=== PATIENT | male | born 1935 | race Caucasian/White ===

== ENCOUNTER → 2021-05-10 14:47 | Outpatient (CLI) | payer MEDICARE, SELFPAY | PROVIDERS: PCP Physician Assistant; Visit Provider Physician Assistant | DX: R39.9 Unspecified symptoms and signs involving the genitourinary system (principal) | CPT/HCPCS: 87077; 87086 ==

== ENCOUNTER → 2021-05-19 11:41 | Outpatient (CLI) | payer MEDICARE, SELFPAY | PROVIDERS: PCP Physician Assistant; Visit Provider Physician Assistant Medical | DX: B37.41 Candidal cystitis and urethritis (principal) | CPT/HCPCS: 87086 ==

== ENCOUNTER → 2021-06-06 12:05 | Outpatient (CLI) | payer MEDICARE, SELFPAY | PROVIDERS: PCP Physician Assistant; Visit Provider Physician Assistant | DX: N30.00 Acute cystitis without hematuria (principal) | CPT/HCPCS: 87086 ==

== ENCOUNTER → 2021-06-26 13:43 | Outpatient (CLI) | payer MEDICARE, SELFPAY | PROVIDERS: PCP Physician Assistant; Visit Provider Family Medicine | DX: R30.0 Dysuria (principal) | CPT/HCPCS: 87086 ==

== ENCOUNTER → 2021-07-19 16:32 | Outpatient (CLI) | payer MEDICARE, SELFPAY | PROVIDERS: PCP Physician Assistant; Visit Provider Physician Assistant Medical | DX: B37.41 Candidal cystitis and urethritis (principal) | CPT/HCPCS: 87086 ==

== ENCOUNTER → 2021-08-11 15:21 | Outpatient (CLI) | payer MEDICARE, SELFPAY | PROVIDERS: PCP Physician Assistant; Visit Provider Physician Assistant Medical | DX: Z91.89 Other specified personal risk factors, not elsewhere classified (principal) | CPT/HCPCS: 87077; 87086 ==

== ENCOUNTER → 2022-04-05 13:33 | Outpatient (CLI) | payer MEDICARE, SELFPAY ==
[2022-04-06 19:40] LABS: Bilirubin Urine UA NEGATIVE (NEGATIVE); Color Urine UA YELLOW; Glucose Urine UA NEGATIVE (Negative); Ketones Urine UA NEGATIVE (NEGATIVE); Leukocyte Esterase Urine UA 2+ (NEGATIVE); Nitrite Urine UA NEGATIVE (Negative); Occult Blood Urine UA 3+ (Negative); Protein Urine UA 2+ (Negative); Specific Gravity Urine UA 1.025 (1.000-1.035); Urobilinogen Urine UA 0.2 E.U./dL (0.2)
[2022-04-06 20:23] LABS: Appearance Urine UA Turbid
[2022-04-06 20:37] LABS: Bacteria Urine None Seen; Culture Indicated Urine Specimen Cultured; RBC Urine 10-30/HPF (0-5/HPF); WBC Urine >100/HPF (0-5/HPF)
== END ==
PROVIDERS: PCP Physician Assistant Medical
DX: B37.41 Candidal cystitis and urethritis (principal); R39.15 Urgency of urination
CPT/HCPCS: 81001; 87077; 87086

== ENCOUNTER → 2023-07-25 14:50 | Outpatient (CLI) | payer MEDICARE, SELFPAY | PROVIDERS: PCP Physician Assistant Medical; Visit Provider Physician Assistant Medical | DX: N39.0 Urinary tract infection, site not specified (principal) | CPT/HCPCS: 87086 ==

== ENCOUNTER → 2023-07-31 09:47 | Outpatient (CLI) | payer MEDICARE, SELFPAY | PROVIDERS: PCP Physician Assistant Medical; Visit Provider Physician Assistant Medical | DX: N39.0 Urinary tract infection, site not specified (principal); B37.41 Candidal cystitis and urethritis | CPT/HCPCS: 87086 ==

== ENCOUNTER → 2023-12-19 16:38 | Outpatient (CLI) | payer MEDICARE, SELFPAY | PROVIDERS: PCP Physician Assistant Medical; Visit Provider Physician Assistant Medical | DX: N39.0 Urinary tract infection, site not specified (principal) | CPT/HCPCS: 87086 ==

== ENCOUNTER → 2024-06-29 09:53 | Outpatient (CLI) | payer MEDICARE, SELFPAY | PROVIDERS: PCP Physician Assistant Medical; Visit Provider Family Medicine | DX: R33.9 Retention of urine, unspecified (principal); N39.0 Urinary tract infection, site not specified; B37.41 Candidal cystitis and urethritis | CPT/HCPCS: 87086 ==

== ENCOUNTER → 2025-07-29 08:15 | Outpatient (CLI) | payer SELFPAY | PROVIDERS: Visit Provider Urology | DX: N39.0 Urinary tract infection, site not specified (principal); R33.9 Retention of urine, unspecified | CPT/HCPCS: 87077; 87086 ==

== ENCOUNTER → 2025-08-25 12:29 | Outpatient (CLI) | payer SELFPAY | PROVIDERS: PCP Physician Assistant Medical; Visit Provider Physician Assistant Medical | DX: B37.41 Candidal cystitis and urethritis (principal); R33.9 Retention of urine, unspecified | CPT/HCPCS: 87086 ==

== ENCOUNTER → 2025-08-31 14:54 | Outpatient (CLI) | payer MEDICARE, SELFPAY ==
--- NOTE | 2025-08-31 14:57 | DI.ECHO.S_ITS ---
[facility] : : [address] : : [place] : : [id number] : : Phone: [phone] Echocardiogram Report + + :Name: MORGAN KEBEDE Study Date: 08/31/2025 Height: 67 in : :[facility] ReadingLocation: Weight: 130 lb : : Gender: Male BSA: 1.7 m2 : :: 1935 Age: 89 yrs BP: 135/76 mmHg: :Reason For Study: Cardiac clearance urlologic procedure : :Ordering Physician: CLEMENT, : :HERIBERTO Performed By: Jackson Umana : :Referring: HERIBERTO VAUGHAN : + + Interpretation Summary The ejection fraction is estimated to be 35-40%. There is hypokinesis of the inferior, inferoseptal and mid to distal inferolateral mas. There is dyskinesis of the basal inferolateral wall. Grade I diastolic dysfunction with normal left atrial pressure. The right ventricle is normal in size and function. There is mild aortic regurgitation. The ascending aorta is mildly enlarged. Pulmonary artery pressures cannot be estimated because of the lack of a measurable TR jet velocity. Procedure: A two-dimensional transthoracic echocardiogram with color flow and Doppler was performed. The study quality was technically adequate. There is no prior echocardiogram noted for this patient. The patient was in normal sinus rhythm during the exam. The heart rate ranged between 55-60 bpm during the study. Left Ventricle: The left ventricle is normal in size and wall thickness. Left ventricular systolic function is moderately reduced. The ejection fraction is estimated to be 35-40%. There is hypokinesis of the inferior, inferoseptal and mid to distal inferolateral mas. There is dyskinesis of the basal inferolateral wall. Grade I diastolic dysfunction with normal left atrial pressure. Right Ventricle: The right ventricle is normal in size and function. Atria: The left atrial size is normal. Right atrial size is normal. There is no Doppler evidence for an interatrial shunt. Mitral Valve: There is mild mitral annular calcification. The mitral valve leaflets appear mildly thickened. There is no mitral valve stenosis. There is trace mitral regurgitation. Aortic Valve: The aortic valve is trileaflet. The aortic valve opens well. There is no aortic valve stenosis. There is mild aortic regurgitation. Tricuspid Valve: The tricuspid valve is not well visualized, but is grossly normal. There is trace tricuspid regurgitation. Pulmonary artery pressures cannot be estimated because of the lack of a measurable TR jet velocity. Pulmonic Valve: The pulmonic valve is not well seen, but is grossly normal. There is trace pulmonic regurgitation. Great Vessels: The aortic root is mildly dilated. The ascending aorta is mildly enlarged. The pulmonary artery is normal size. The inferior vena cava was not visualized. Pericardium/ Pleura There is no pericardial effusion. MMode/2D Measurements & Calculations LVIDd: 5.2 cm LVOT diam: 2.0 cm LVIDs: 4.7 cm Ao root diam: 4.2 cm FS: 9.0 % asc Aorta Diam: 4.0 cm EPSS: 1.2 cm IVSd: 0.81 cm LVPWd: 0.79 cm LV cobb. diameter/BSA (cm/m^2): 3.1 LV sys. diameter/BSA (cm/m^2): 2.8 LA A2 area: 16.4 cm2 RVD1 (basal): 2.6 cm LA A4 area: 20.4 cm2 RVD2 (mid): 2.3 cm LA length (vol): 5.5 cm TAPSE: 1.6 cm LA vol: 51.5 ml LA vol index: 30.6 ml/m2 Doppler Measurements & Calculations Ao V2 max: 96.5 cm/sec LVOT Max Jeremy: 86.1 cm/sec Ao V2 mean: 62.9 cm/sec LV V1 max P.0 mmHg Ao max P.7 mmHg LV V1 VTI: 18.9 cm Ao mean P.9 mmHg FROYLAN(I,D): 3.0 cm2 Ao V2 VTI: 20.7 cm FROYLAN(V,D): 2.9 cm2 sev ratio: 0.92 FROYLAN indexed to BSA (cm^2/m^2): 1.8 AI P1/2t: 657.2 msec AI dec slope: 171.3 cm/sec2 MV E max jeremy: 53.9 cm/sec TR max jeremy: 183.1 cm/sec MV A max jeremy: 102.5 cm/sec TR max P.4 mmHg MV E/A: 0.53 PA V2 max: 85.9 cm/sec Med Peak E' Jeremy: 4.2 cm/sec PA V2 mean: 61.2 cm/sec E/E' med: 12.9 PA mean P.7 mmHg Lat Peak E' Jeremy: 6.3 cm/sec PA pr(Accel): 27.6 mmHg E/E' lat: 8.5 E/e' average: 10.7 MV dec time: 0.21 sec MVA(VTI): 2.1 cm2 MV V2 mean: 52.3 cm/sec SV(LVOT): 62.3 ml MV mean P.3 mmHg MV V2 VTI: 30.2 cm Qp/Qs (V,Ao): 1.0/5.0 Qp/Qs (V,LVOT): 1.0/1.1 Reading Physician:04:08 PM
== END ==
PROVIDERS: PCP Physician Assistant Medical; Referring Provider Physician Assistant Medical; Visit Provider Physician Assistant Medical
DX: Z01.818 Encounter for other preprocedural examination (principal); I34.81 Nonrheumatic mitral (valve) annulus calcification; I35.1 Nonrheumatic aortic (valve) insufficiency; I77.810 Thoracic aortic ectasia; I25.10 Atherosclerotic heart disease of native coronary artery without angina pectoris; I77.89 Other specified disorders of arteries and arterioles
CPT/HCPCS: 93307

== ENCOUNTER → 2025-09-08 14:39 | Outpatient (CLI) | payer MEDICARE, SELFPAY ==
[2025-09-08 16:06] LABS: Add Manual Diff / Slide Review NO; Hematocrit 39.1 % (41-53); Hemoglobin 13.1 g/dL (13.5-17.5); Lymphocytes Absolute Auto 1900 /uL (1100-4500); Mean Corpuscular HGB Conc 33.5 % (30-36); Mean Corpuscular Hemoglobin 29.1 PG (26-34); Mean Corpuscular Volume 86.9 fL (80-100); Platelet Count 251 X10^3/uL (150-400)
[2025-09-08 16:19] LABS: Hemoglobin A1C% w Est Avg Glu 5.4 % (4.0-6.0)
[2025-09-08 17:22] LABS: Alanine Aminotransferase 11 IU/L (<50); Albumin 4.1 g/dL (3.5-5.0); Albumin Globulin Ratio 1.2 (1.0-2.8); Alkaline Phosphatase 92 U/L (38-126); Blood Urea Nitrogen 17 mg/dL (9-20); Calcium 9.3 mg/dL (8.4-10.2); Carbon Dioxide 25 mmol/L (22-32); Chloride 109 mmol/L (98-107); Cholesterol 225 mg/dL (140-199); Estimated Glomerular Filt Rate > 60 mL/min (>60); Globulin 3.4 g/dL (1.7-4.1); Glucose 110 mg/dL (70-99); HDL Cholesterol 58 mg/dL (40-60); HEMOLYSIS < 15 (0-50); Potassium 4.2 mmol/L (3.4-5.1); Sodium 142 mmol/L (137-145); Total Protein 7.5 g/dL (6.3-8.2); Triglycerides 87 mg/dL (35-150)
[2025-09-08 17:54] LABS: TSH w/ Reflex to FT4 1.63 uIU/mL (0.47-4.68)
== END ==
PROVIDERS: PCP Physician Assistant Medical; Referring Provider Physician Assistant Medical; Visit Provider Physician Assistant Medical
DX: Z01.818 Encounter for other preprocedural examination (principal); I25.10 Atherosclerotic heart disease of native coronary artery without angina pectoris; I10 Essential (primary) hypertension; M54.2 Cervicalgia; B37.41 Candidal cystitis and urethritis; R33.9 Retention of urine, unspecified; N40.1 Benign prostatic hyperplasia with lower urinary tract symptoms
CPT/HCPCS: 36415; 80053; 80061; 83036; 84443; 85025; 87086